=== PATIENT | female | born 1980 | race African-American/Black ===

== ENCOUNTER 2021-10-07 22:21 | Emergency (ER) | payer OTHER ==
[~2021-10-07] VITALS: Ht 170.2 cm; Wt 86.2 kg
--- NOTE | 2021-10-07 23:38 | NUR ---
Dr. Augustin at bedside for MSE.
[2021-10-07] MEDS ORDERED: OXYC-128 PO (23:52)
--- NOTE | 2021-10-07 23:55 | NUR ---
Patient discharged to home in stable condition. Written and verbal after care instructions given. Patient verbalizes understanding of instructions. Stressed follow up or return to ER for worsening s/s. Patient out of ER with steady gait, no acute signs of distress, VSS, all belongings taken.
[2021-10-07 23:56] VITALS: BP 141/84
== END 2021-10-07 23:56 | disposition home or self-care (01) ==
LOC: ER 22:25
DX: S16.1XXA Strain of muscle, fascia and tendon at neck level, initial encounter (principal); V49.60XA Unspecified car occupant injured in collision with unspecified motor vehicles in traffic accident, initial encounter; Y92.414 Local residential or business street as the place of occurrence of the external cause; G89.29 Other chronic pain; M54.9 Dorsalgia, unspecified
CPT/HCPCS: A4663